=== PATIENT | female | born 1960 | race Caucasian/White ===

== ENCOUNTER 2022-12-23 01:27 | Inpatient (IN) | payer OTHER ==
[~2022-12-23] VITALS: Ht 167.6 cm; Wt 62.6 kg
[2022-12-23] MEDS ORDERED: LORAZEPAM0.5 M1 PO (01:39)
[2022-12-23] MEDS ORDERED: BENZTROPINE ME0.5 MG PO (01:40)
[2022-12-23] MEDS ORDERED: PHARMASSURE1000 MCG PO (01:41)
[2022-12-23] MEDS ORDERED: DOCUSATE SOD100 MG PO (01:41)
[2022-12-23] MEDS ORDERED: FISH OIL + D31 EACH PO (01:43)
[2022-12-23 01:55] LABS: BASO % 0.7 % (0.0-1.0); EOS # 0.1 10*3/uL (0.0-0.4); LYMPH # 2.3 10*3/uL (1.3-4.4); LYMPH % 41.9 % (27.0-41.0); MEAN CELL VOLUME 90.9 fl (81.0-99.0); MEAN CORPUSCULAR HGB 29.4 pg (27.0-31.0); MEAN CORPUSCULAR HGB CONC 32.3 g/dl (33.0-37.0); MEAN PLATELET VOLUME 9.4 fl (9.6-12.3); MONO # 0.5 10*3/uL (0.1-1.0); MONO % 8.6 % (3.0-9.0); NEUT # 2.5 10*3/uL (2.3-7.9); NEUT % 46.4 % (47.0-73.0); PLATELET COUNT AUTOMATED 381 10*3/uL (130-400); RED BLOOD COUNT 3.85 10*6/uL (4.10-5.10); RED CELL DISTRI WIDTH 14.7 % (0-14.5); WHITE BLOOD COUNT 5.4 10*3/uL (4.8-10.8)
[2022-12-23 01:59] LABS: BILIRUBIN Negative (Negative); BLOOD Negative (Negative); CLARITY Clear (Clear); COLOR Yellow (Yellow); GLUCOSE Negative (Negative); KETONE Negative (Negative); LEUKO ESTERASE Negative (Negative); NITRITE Negative (Negative); PH 6.5 (4.5-8.0); SPECIFIC GRAVITY <= 1.005 (1.001-1.030); UROBILINOGEN 0.2 E.U./dl (0.0-1.0)
[2022-12-23 02:06] LABS: URINE AMPHETAMINES Negative (1000ng/ml); URINE BARBITURATES Negative (200ng/ml); URINE BENZODIAZEPINES Negative (200ng/ml); URINE CANNABINOIDS (THC) Negative (50ng/ml); URINE COCAINE Negative (300ng/ml); URINE METHADONE Negative (300ng/ml); URINE OPIATES Negative (300ng/ml); URINE PHENCYCLIDINE Negative (25ng/ml)
[2022-12-23 02:11] VITALS: BP 127/87
[2022-12-23 02:15] LABS: MUCOUS 1+; RBC 0-2 rbc/hpf (0-2)
[2022-12-23 02:16] LABS: ALKALINE PHOSPHATASE 108 U/L (46-116); BUN 5 mg/dl (9-23); CHLORIDE 103 mmol/L (98-107); POTASSIUM 3.9 mmol/L (3.4-5.1); SGPT/ALT 25 U/L (10-49)
[2022-12-23 02:17] LABS: ETHYL ALCOHOL < 3.0 mg/dl (<3)
[2022-12-23] MEDS ORDERED: RESTORIL15 MG PO (02:43)
[2022-12-23] MEDS ORDERED: TRAMADOL HCL50 MG PO (02:46)
[2022-12-23] MEDS ORDERED: IBUPROFEN600 MG PO (02:48)
[2022-12-23] MEDS ORDERED: ZYPREXA5 M1 PO (02:50)
[2022-12-23] MEDS ORDERED: NICOTINE POLACRI2 MG PO (02:51)
[2022-12-23] MEDS ORDERED: PROVENTIL HFA6.7 GM PO (02:54)
[2022-12-23] MEDS ORDERED: LEVOTHYROXINE75 MC1 PO (02:55)
[2022-12-23] MEDS ORDERED: MIRALAX17 GM PO (03:02)
[2022-12-23] MEDS ORDERED: PROTONIX40 MG PO (03:03)
[2022-12-23] MEDS ORDERED: TRILEPTAL150 MG PO (03:04)
[2022-12-23] MEDS ORDERED: VISTARIL50 MG PO (03:05)
[2022-12-23] MEDS ORDERED: MELATONIN3 MG PO (03:06)
[2022-12-23] MEDS ORDERED: SIMVASTATIN20 MG PO (03:06)
[2022-12-23 03:45] VITALS: BP 120/88
[2022-12-23 07:19] LABS: THYROID STIM HORMONE (HS) 2.608 uIU/ml (0.550-4.780)
[2022-12-23 07:23] VITALS: BP 122/68
[2022-12-23 07:47] VITALS: BP 122/68
[2022-12-23 20:00] VITALS: BP 108/65
[2022-12-24 07:44] VITALS: BP 100/70
[2022-12-24 20:00] VITALS: BP 110/79
[2022-12-25 07:23] VITALS: BP 117/86
[2022-12-25 20:00] VITALS: BP 111/84
[2022-12-26 08:00] VITALS: BP 122/84
[2022-12-26 20:00] VITALS: BP 124/77
[2022-12-27 08:22] VITALS: BP 111/80
[2022-12-27 20:00] VITALS: BP 109/69
[2022-12-28 09:08] VITALS: BP 126/81
[2022-12-28 20:00] VITALS: BP 97/64
[2022-12-29 07:27] VITALS: BP 110/70
[2022-12-29 20:00] VITALS: BP 129/74
[2022-12-30 07:46] VITALS: BP 113/71
[2022-12-30 20:15] VITALS: BP 138/74
[2022-12-31 07:55] VITALS: BP 100/61
[2022-12-31 20:00] VITALS: BP 114/79
[2023-01-02 07:17] VITALS: BP 119/74
[2023-01-02 20:00] VITALS: BP 107/69
[2023-01-03 08:00] VITALS: BP 90/63
[2023-01-03 10:45] VITALS: BP 118/70
[2023-01-04 07:22] VITALS: BP 114/73
[2023-01-04 20:00] VITALS: BP 106/62
[2023-01-05 07:12] VITALS: BP 110/60
[2023-01-05 20:00] VITALS: BP 119/75
[2023-01-06 08:00] VITALS: BP 119/81
[2023-01-06 20:00] VITALS: BP 127/79
[2023-01-07 07:20] VITALS: BP 126/77
[2023-01-08 07:20] VITALS: BP 126/77
[2023-01-08] MEDS ORDERED: INVEGA SUSTENN156 MG IM (09:19)
[2023-01-08] MEDS ORDERED: CHLORPROMA25 MG/1 ML IM (09:19)
[2023-01-08] MEDS ORDERED: MELATONIN5 M7 PO (09:19)
[2023-01-08] MEDS ORDERED: HALOPERIDO100 MG/11 IM (09:30)
== END 2023-01-08 14:51 | DRG 885 ==
LOC: ED 01:27 → 3N 02:28
PROVIDERS: Internal Medicine; ADMIT Psychiatry & Neurology Psychiatry; ATTEND Psychiatry & Neurology Psychiatry
DX: F25.0 Schizoaffective disorder, bipolar type (principal); E87.1 Hypo-osmolality and hyponatremia; E03.9 Hypothyroidism, unspecified; D64.9 Anemia, unspecified; K59.00 Constipation, unspecified; E78.5 Hyperlipidemia, unspecified; I10 Essential (primary) hypertension; G47.00 Insomnia, unspecified; E78.49 Other hyperlipidemia; E53.8 Deficiency of other specified B group vitamins; S61.001A Unspecified open wound of right thumb without damage to nail, initial encounter; S61.204A Unspecified open wound of right ring finger without damage to nail, initial encounter; X58.XXXA Exposure to other specified factors, initial encounter; Z88.8 Allergy status to other drugs, medicaments and biological substances; Y93.89 Activity, other specified; Y92.89 Other specified places as the place of occurrence of the external cause; Y99.8 Other external cause status